=== PATIENT | female | born 1990 | race African-American/Black ===

== ENCOUNTER 2024-09-06 08:17 | Outpatient (CLI) | payer BC, SELFPAY ==
--- NOTE | ~2024-09-06 | CT_ITS ---
EXAMINATION: CT pelvis w con DATE: 09/06/2024 08:37 INDICATION: Intra-abdominal and pelvic swelling. TECHNIQUE: Computed tomography (CT) of the pelvis was performed with 100 mL Omnipaque 350 intravenous contrast. Automated exposure control and iterative reconstruction technique were employed. The dose- length product was 332.46 mGy-cm. COMPARISON: None FINDINGS: There are no dilated loops of bowel. The periuterine and ovarian veins are enlarged, consis tent with pelvic venous insufficiency. There is a 1.4 cm degenerating corpus luteum cyst in right ova ry. There is physiologic fluid in the pelvis with peritoneal enhancement. There are no pathologically enlarged lymph nodes. The bones are unremarkable. IMPRESSION: 1. Pelvic venous insufficiency. Reviewed, dictated and finalized at location A. 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
== END 2024-09-06 08:18 | disposition home or self-care (01) ==
LOC: MICIMG 08:18
PROVIDERS: PCP Obstetrics & Gynecology; Visit Provider Obstetrics & Gynecology
DX: R19.00 Intra-abdominal and pelvic swelling, mass and lump, unspecified site (principal); R93.89 Abnormal findings on diagnostic imaging of other specified body structures
CPT/HCPCS: 72193; Q9967